=== PATIENT | female | born 1960 | race Caucasian/White ===

== ENCOUNTER → 2025-04-04 10:39 | Outpatient (CLI) | payer MEDICARE, MEDICAID, SELFPAY ==
--- NOTE | 2025-04-04 11:37 | DI.MRI.S_ITS ---
MR breast BI wo/w con: 04/04/2025. BI-RADS: 4 CLINICAL: 64-year old female for bilateral diagnostic breast MRI. Patient reports a history of left breast carcinoma diagnosed at age 64. Current reported family history of breast cancer: mother. Patient was diagnosed within the last 5 years. PRIOR EXAMS: 03/08/2025, 02/06/2025, 01/05/2024. MRI TECHNIQUE: Bilateral breast MRI was performed on a 1.5 [place]a magnet using a dedicated breast coil with mild compression. Axial T1 and T2 STIR sequences were obtained. Dynamic contrast enhanced VIBRANT fat-suppressed sequences were obtained. Delayed sagittal high resolution or sagittal reconstructed isotropic sequence was also obtained. Subtraction images and maximum intensity projection images were obtained. The study was evaluated using SimpleOrder software. IV Contrast: 20 ml ProHance. FIBROGLANDULAR TISSUE Bilateral: C. Heterogeneous fibroglandular tissue. BACKGROUND PARENCHYMAL ENHANCEMENT Bilateral: Mild symmetrical background parenchymal enhancement. BREAST FINDINGS Right: Lower at 7:00, 3.5 cm from nipple, (Sagittal S:12/I:58), (Axial S:6/I:44), Middle depth, measuring 1.8 x 1.3 x 0.9cm: There is an irregularly shaped heterogeneously enhancing mass with kinetic enhancement curve showing mixed pattern (persistent, plateau) on delayed phase. On non-contrast sequences this mass shows low signal intensity on T1-weighted sequences and mixed (intermediate, high) signal intensity on T2/STIR-weighted sequences. Right: Central, Middle depth: There are multiple oval homogeneously enhancing masses with kinetic enhancement curves showing persistent pattern on delayed phase. On non-contrast sequences these masses show high signal intensity on STIR/T2- weighted sequences. These small oval masses are scattered in the central breast extending towards the anterior depth and demonstrate different appearance and enhancement kinetics compared to the know biopsy proven malignancy. These may represent prominent background parenchymal enhancement as similar, relatively symmetrical findings are noted in the contralateral breast. Left: Central, Middle depth: There are multiple oval homogeneously enhancing masses with kinetic enhancement curves showing persistent pattern on delayed phase. On non-contrast sequences these masses show high signal intensity on STIR/T2- weighted sequences. These small oval masses extend anteriorly from the biopsied mass approximately 3.5 cm and demonstrate different appearance and enhancement kinetics compared to the know biopsy proven malignancy. These may represent prominent background parenchymal enhancement as similar, relatively symmetrical findings are noted in the contralateral breast. Left: Lower Outer at 3:00, 5.5 cm from nipple, (Sagittal S:13/I:57), (Axial S:6/I:63), Middle depth, measuring 1.2 x 1.3 x 0.8cm: Correlating with area of biopsy, findings on mammogram, and previous ultrasound findings there is an irregularly shaped, spiculated heterogeneously enhancing mass with associated signal void from biopsy marker. There is a small non-enhancing fluid collection adjacent to this mass consistent with post biopsy changes. Bilateral: No abnormal lymph nodes are seen in the bilateral axilla. No internal mammary chain adenopathy. CHEST FINDINGS Visualized portions of the chest appear unremarkable. ABDOMEN FINDINGS Visualized portions of the upper abdomen appear unremarkable. IMPRESSION: Right (Mass): Lower at 7:00, 3.5 cm from nipple, (Sagittal S:12/I:58), (Axial S:6/I:44), Middle depth, measuring 1.8 x 1.3 x 0.9cm * Suspicious findings with likelihood of malignancy. Right (Mass): Central, Middle depth * Incomplete - Needs additional imaging evaluation. Left (Mass): Central, Middle depth * Incomplete - Needs additional imaging evaluation. Left (Mass): Lower Outer at 3:00, 5.5 cm from nipple, (Sagittal S:13/I:57), (Axial S:6/I:63), Middle depth, measuring 1.2 x 1.3 x 0.8cm * Known Biopsy-Proven Malignancy. RECOMMENDATIONS Right: Central, Middle depth * Further evaluation with diagnostic mammography and diagnostic ultrasound. Right: Lower at 7:00, 3.5 cm from nipple, Middle depth * Further evaluation with diagnostic ultrasound and diagnostic mammography. * Second-look ultrasound followed by ultrasound guided biopsy. If there is no ultrasound correlate, MRI-guided biopsy is recommended. Left: Central, Middle depth * Further evaluation with diagnostic mammography and diagnostic ultrasound. Left: Lower Outer at 3:00, 5.5 cm from nipple, Middle depth * Referral to surgeon and oncologist. Referral appointment to be scheduled as soon as possible. COMMENTS: Of note, prior outside images are not completely available for review. Right breast images from screening mammogram dated 02/06/2025 are not available for review. OVERALL ASSESSMENT CATEGORY BI-RADS-4: Suspicious. PRELIMINARILY ELECTRONICALLY SIGNED: Jim Ohara M.D. on 04/11/2025 at 12:01:56 PM PT ELECTRONICALLY SIGNED: Jim Ohara M.D. on 04/11/2025 at 12:07:13 PM PT Interpreting Station ID: [id number]
== END ==
PROVIDERS: Family Provider Nurse Practitioner Family; PCP Family Medicine; Referring Provider Family Medicine; Visit Provider Family Medicine
DX: R92.8 Other abnormal and inconclusive findings on diagnostic imaging of breast (principal); C50.912 Malignant neoplasm of unspecified site of left female breast; N63.13 Unspecified lump in the right breast, lower outer quadrant; R92.333 Mammographic heterogeneous density, bilateral breasts; Z80.3 Family history of malignant neoplasm of breast
CPT/HCPCS: 77049; A9579